=== PATIENT | male | born 1995 | race American Indian/Alaskan Native ===

== ENCOUNTER 2017-07-10 18:56 | Emergency (ER) | payer MEDICAID, OTHER | END 2017-07-10 20:25 | disposition left against medical advice (07) | LOC: DL.ED 18:56 | DX: Z53.21 Procedure and treatment not carried out due to patient leaving prior to being seen by health care provider (principal) ==

== ENCOUNTER 2017-07-11 15:24 | Emergency (ER) | payer MEDICAID, OTHER ==
--- NOTE | 2017-07-11 15:46 | EDM.PDOC ---
ED HPI GENERAL MEDICAL PROBLEM - General Chief Complaint: Respiratory Problem Stated Complaint: HARD TO BREATH [id number] Time Seen by Provider: 07/11/17 15:40 Source of Information: Reports: Patient, RN, RN Notes Reviewed History Limitations: Reports: No Limitations - History of Present Illness INITIAL COMMENTS - FREE TEXT/NARRATIVE: Eusebio is a 22yo male who presents today due to cold symptoms that started yesterday. He reports cough, runny nose, shortness of breath, and chills. Increased shortness of breath. Patient denies nausea, vomiting, fever, or abd pain. He relates that he has been taking nyquil without relief in his sx. Does report sinus pressure to his maxillary sinus area. He denies being exposed to anyone with similar sx. Onset Date: 07/10/17 Location: Reports: Face Quality: Reports: Pressure Severity: Moderate Improves with: Reports: None Worsens with: Reports: Movement Associated Symptoms: Reports: Cough, Shortness of Breath - Related Data Allergies Allergy/AdvReac Type Severity Reaction Status Date / Time No Known Allergies Allergy Verified 07/11/17 15:38 Home Meds: Home Meds . [No Known Home Meds] 07/11/17 [History] ED ROS GENERAL - Review of Systems Review Of Systems: ROS reveals no pertinent complaints other than HPI. ED EXAM, GENERAL - Physical Exam Exam: See Below Exam Limited By: No Limitations General Appearance: Alert, WD/WN, No Apparent Distress Eye Exam: Bilateral Eye: PERRL Ears: Normal External Exam, Normal Canal, Hearing Grossly Normal, Normal TMs Ear Exam: Bilateral Ear: Auricle Normal, Canal Normal, TM normal Nose: Normal Inspection, Normal Mucosa, No Blood Throat/Mouth: Normal Inspection, Normal Lips, Normal Teeth, Normal Gums, Normal Oropharynx, Normal Voice, No Airway Compromise Head: Atraumatic, Normocephalic, Sinus Tenderness Neck: Normal Inspection, Supple, Non-Tender, Full Range of Motion Respiratory/Chest: No Respiratory Distress, Lungs Clear, Normal Breath Sounds, No Accessory Muscle Use, Chest Non-Tender Cardiovascular: Normal Peripheral Pulses, Regular Rate, Rhythm, No Edema, No Gallop, No JVD, No Murmur, No Rub GI/Abdominal: Normal Bowel Sounds, Soft, Non-Tender, No Organomegaly, No Distention, No Abnormal Bruit, No Mass (Male) Exam: Deferred Rectal (Males) Exam: Deferred Back Exam: Normal Inspection, Full Range of Motion, NT Extremities: Normal Inspection, Normal Range of Motion, Non-Tender, Normal Capillary Refill, No Pedal Edema Neurological: Alert, Oriented, CN II-XII Intact, Normal Cognition, Normal Gait, Normal Reflexes, No Motor/Sensory Deficits Psychiatric: Normal Affect, Normal Mood Skin Exam: Warm, Dry, Intact, Normal Color, No Rash Lymphatic: No Adenopathy Course - Vital Signs Last Recorded V/S: Last Vital Signs Temp 97.6 F 07/11/17 15:38 Pulse 82 07/11/17 15:38 Resp 20 07/11/17 15:38 BP 122/87 07/11/17 15:38 Pulse Ox 97 07/11/17 15:38 - Orders/Labs/Meds Orders: Active Orders 24 hr Category Date Time Status CULTURE STREP A CONFIRMATION [] Stat Lab 07/11/17 16:05 Results INFLUENZA A+B AG SCREEN [] Stat Lab 07/11/17 16:05 Ordered STREP SCRN A RAPID W CULT CONF [] Stat Lab 07/11/17 16:05 Ordered Labs: Laboratory Tests 07/11/17 07/11/17 Range/Units 16:02 16:02 WBC 10.8 H (5.0-10.0) 10^3/uL RBC 5.50 (4.6-6.2) 10^6/uL Hgb 17.1 (14.0-18.0) g/dL Hct 48.2 (40.0-54.0) % MCV 87.6 (80-100) fL MCH 31.1 (27.0-34.0) pg MCHC 35.5 H (33.0-35.0) g/dL Plt Count 205 (150-450) 10^3/uL Neut % (Auto) 75.8 H (42.2-75.2) % Lymph % (Auto) 11.6 L (20.5-50.1) % [place] % (Auto) 10.6 H (2-8) % Eos % (Auto) 1.9 (1.0-3.0) % Baso % (Auto) 0.1 (0.0-1.0) % Sodium 136 (135-145) mmol/L Potassium 3.7 (3.6-5.0) mmol/L Chloride 104 (101-111) mmol/L Carbon Dioxide 23.0 (21.0-31.0) mmol/L Anion Gap 12.7 BUN 8 (7-18) mg/dL Creatinine 0.8 (0.6-1.3) mg/dL Est Cr Clr Drug Dosing TNP Estimated GFR (MDRD) > 60 BUN/Creatinine Ratio 10.00 Glucose 111 H (74-105) mg/dL Calcium 9.1 (8.4-10.2) mg/dl Total Bilirubin 0.5 (0.2-1.0) mg/dL AST 55 H (10-42) IU/L ALT 104 H (10-60) IU/L Alkaline Phosphatase 71 (42-121) IU/L Total Protein 7.9 (6.7-8.2) g/dl Albumin 4.5 (3.2-5.5) g/dl Globulin 3.4 Albumin/Globulin Ratio 1.32 Departure - Departure Time of Disposition: 16:28 Disposition: Home, Self-Care 01 Condition: Good Clinical Impression: Influenza B - Discharge Information Instructions: Influenza, Adult, [id number] Forms: ED Department Discharge Care Plan Goals: Drink plenty of fluids. No work/school until you are fever free for 24 hours. Tylenol/ibuprofen as needed for fever/pain Rest Return if your are experiencing shortness of breath, worsening symptoms or other concerns.
--- NOTE | 2017-07-11 16:20 | CR ---
Clinical history: 22-year-old male emergency department complaining of shortness of breath. Interpretation: No signs of bronchial inflammation or air trapping (bronchospasm). Normal cardiac silhouette and left-sided aortic arch. Adithya thorax unremarkable. No alveolar edema or dependent pleural effusion. No lung mass, hilar lymphadenopathy or focal lobar pneumonia. No atelectasis/collapse. No pneumothorax. CONCLUSION: Negative exam.
[2017-07-11 16:32] LABS: CHLORIDE,CL 104 mmol/L (101-111); SODIUM,NA 136 mmol/L (135-145)
== END 2017-07-11 17:05 | disposition home or self-care (01) ==
LOC: DL.ED 15:24
DX: J10.1 Influenza due to other identified influenza virus with other respiratory manifestations (principal)
CPT/HCPCS: 36415; 71046; 80053; 85025; 87081; 87430; 87804; 99283

== ENCOUNTER 2019-06-10 12:48 | Emergency (ER) | payer MEDICAID, OTHER ==
--- NOTE | 2019-06-10 18:09 | EDM.PDOC ---
ED HPI GENERAL MEDICAL PROBLEM - General Chief Complaint: Fever Stated Complaint: COLD SICK Time Seen by Provider: 06/10/19 18:04 Source of Information: Reports: Patient History Limitations: Reports: No Limitations - History of Present Illness INITIAL COMMENTS - FREE TEXT/NARRATIVE: This 23 yo male patient reports to the ED with a 2 day history of fever, chills and a sore throat. The patient has not taken anything for temporary symptom relief. Onset Date: 06/09/19 Duration: Constant Location: Reports: Other Quality: Reports: Other Severity: Moderate Improves with: Reports: None Worsens with: Reports: None Context: Reports: Other Associated Symptoms: Reports: No Other Symptoms Throat Pain Score (Numeric/FACES): 4 - Related Data Allergies Allergy/AdvReac Type Severity Reaction Status Date / Time No Known Allergies Allergy Verified 07/11/17 15:38 Home Meds: Home Meds . [No Known Home Meds] 07/11/17 [History] Past Medical History - Past Health History Medical/Surgical History: Denies Medical/Surgical History Social & Family History - Family History Family Medical History: Noncontributory - Tobacco Use Smoking Status *Q: Current Every Day Smoker Years of Tobacco use: 6 Packs/Tins Daily: 1 - Caffeine Use Caffeine Use: Reports: Coffee, Energy Drinks, Soda, Tea - Recreational Drug Use Recreational Drug Use: No ED ROS GENERAL - Review of Systems Review Of Systems: Comprehensive ROS is negative, except as noted in HPI. ED EXAM, GENERAL - Physical Exam Exam: Not Obtained Exam Limited By: No Limitations General Appearance: Alert, WD/WN, Moderate Distress Eye Exam: Bilateral Eye: EOMI, Normal Inspection, PERRL Ears: Normal External Exam, Normal Canal, Hearing Grossly Normal, Normal TMs Nose: Normal Inspection, Normal Mucosa, No Blood Throat/Mouth: Normal Inspection, Normal Lips, Normal Teeth, Normal Gums, Normal Oropharynx, Normal Voice, No Airway Compromise Head: Atraumatic, Normocephalic Neck: Normal Inspection, Supple, Non-Tender, Full Range of Motion Respiratory/Chest: No Respiratory Distress, Lungs Clear, Normal Breath Sounds, No Accessory Muscle Use, Chest Non-Tender Cardiovascular: Normal Peripheral Pulses, Regular Rate, Rhythm, No Edema, No Gallop, No JVD, No Murmur, No Rub GI/Abdominal: Normal Bowel Sounds, Soft, Non-Tender, No Organomegaly, No Distention, No Abnormal Bruit, No Mass (Male) Exam: Deferred Rectal (Males) Exam: Deferred Back Exam: Normal Inspection, Full Range of Motion, NT Extremities: Normal Inspection, Normal Range of Motion, Non-Tender, Normal Capillary Refill, No Pedal Edema Neurological: Alert, Oriented, CN II-XII Intact, Normal Cognition, Normal Gait, Normal Reflexes, No Motor/Sensory Deficits Psychiatric: Normal Affect, Normal Mood Skin Exam: Dry, Intact, Normal Color, No Rash, Increased Warmth Lymphatic: No Adenopathy Course - Vital Signs Last Recorded V/S: Last Vital Signs Temp 38.0 C 06/10/19 15:53 Pulse 116 H 06/10/19 15:53 Resp 14 06/10/19 15:53 BP 123/74 06/10/19 15:53 Pulse Ox 94 L 06/10/19 15:53 Departure - Departure Time of Disposition: 18:05 Disposition: Home, Self-Care 01 Condition: Fair Clinical Impression: Influenza A, Strep throat - Discharge Information *PRESCRIPTION DRUG MONITORING PROGRAM REVIEWED*: Not Applicable *COPY OF PRESCRIPTION DRUG MONITORING REPORT IN PATIENT JOSE: Not Applicable Instructions: Influenza, Adult, [id number], Strep Throat Forms: ED Department Discharge Care Plan Goals: The patient was advised of the examination and lab results during the visit. The patient was discharged with a script for Azithromycin (250 mg) #6 to take 2 by mouth on day 1 and 1 by mouth on days 2-5 and Tamiflu (75 mg) #10 to take 1 by mouth 2 times per day for 5 days. The patient may take Tylenol or ibuprofen as directed for temporary symptom relief. If the patient has any additional symptoms or concerns, the patient should either return to the emergency department or visit his primary care facility. Sepsis Event Note - Evaluation Sepsis Screening Result: Possible Sepsis Risk - Focused Exam Vital Signs: Vital Signs Temp Pulse Resp BP Pulse Ox 06/10/19 15:53 38.0 C 116 H 14 123/74 94 L Date Exam was Performed: 06/10/19 Time Exam was Performed: 18:09
== END 2019-06-10 18:14 | disposition home or self-care (01) ==
LOC: DL.ED 12:48
DX: J10.1 Influenza due to other identified influenza virus with other respiratory manifestations (principal); F17.210 Nicotine dependence, cigarettes, uncomplicated
CPT/HCPCS: 87430; 87804; 99283